=== PATIENT | female | born 1975 | race Caucasian/White ===

== ENCOUNTER 2022-01-06 17:28 | Emergency (ER) | payer OTHER ==
[~2022-01-06] VITALS: Ht 154.9 cm; Wt 67.0 kg
[2022-01-06 17:35] VITALS: BP 146/91
[2022-01-06] MEDS ORDERED: TETANUS, DIPHTHERIA, PERTUSSIS VAC/PF 0.5ML (>10YR OLD) IM ONE (18:00)
[2022-01-06] MEDS ORDERED: LIDOCAINE HCL/PF 1% 10 MG/ML 5ML VIAL INFIL ONE (18:00)
[2022-01-06] MEDS ORDERED: BACITRACIN ZINC OINT UDPKT TOP ONE (18:00)
[2022-01-06] MEDS ORDERED: ACET-2708 MT (18:42)
[2022-01-06] MEDS ORDERED: ACETAMINOPHEN 325MG TABLET PO ONE (18:45)
== END 2022-01-06 19:11 | disposition home or self-care (01) ==
LOC: ER 17:28
DX: S61.412A Laceration without foreign body of left hand, initial encounter (principal); W26.8XXA Contact with other sharp object(s), not elsewhere classified, initial encounter; Y93.89 Activity, other specified; Y92.89 Other specified places as the place of occurrence of the external cause; Y99.8 Other external cause status; I10 Essential (primary) hypertension
CPT/HCPCS: 12001; 73130; 90471; 90715; 99283; J3490